=== PATIENT | female | born 2000 | race Caucasian/White ===

== ENCOUNTER 2024-01-26 10:48 | Outpatient (CLI) | payer OTHER, SELFPAY ==
--- NOTE | ~2024-01-26 | MR_ITS ---
EXAMINATION: MR hip RT wo con DATE: 01/26/2024 11:46 INDICATION: Right hip fracture. TECHNIQUE: Magnetic resonance imaging (MRI) of the right hip was performed without intravenous contr ast. Sequences included full-field axial PD-weighted FS FSE and T1-weighted FSE, coronal of the pelvi s with PD-weighted FS FSE, T2-weighted FSE and T1-weighted FSE, small field of view of the right hip with axial PD-weighted FS FSE, sagittal PD-weighted FS FSE, coronal PD-weighted FS FSE and coronal T 2 weighted FSE. Additional radial T1-weighted FGR oriented orthogonal to the acetabular rim were obta ined for evaluation of the labrum. COMPARISON: None FINDINGS: Bones/labrum/cartilage: Mild lumbar levocurvature. Bone alignment is otherwise normal. Focal marrow edema at the medial basic ervical proximal right femur without evident linear low signal intensity fracture line consistent wit h a low-grade stress injury. Prominent low signal intensity bone islands at the intratrochanteric pro ximal left femur. Bone marrow signal is otherwise normal throughout. No pathologic marrow replacing p rocess. Small cleft with smooth margins at the base of the anterosuperior right acetabular labrum whi ch could represent either a normal sulcus or small labral tear. Articular cartilage is normal. Fluid: Symmetric physiologic amount of fluid within both hip joints. Small amount of likely physiologic free fluid in the deep pelvis. Soft tissues: There is likely reactive mild soft tissue edema in the vicinity of the proximal right femoral stress injury. Normal and symmetric muscle bulk and signal in the pelvis and visualized proximal thighs. The iliopsoas, gluteal and proximal hamstring tendons are normal. There are multiple small T2 hyperinten se cysts/follicles at both ovaries. Limited evaluation of visceral organs of the pelvis is unremarkab le. No pathologically enlarged pelvic/inguinal lymphadenopathy. IMPRESSION: 1. Low-grade stress injury along the medial basicervical proximal right femur without evident fractur e line or cortical involvement. 2. Small tear versus more likely normal sublabral sulcus at the anterosuperior right acetabular labru m. Reviewed, dictated and finalized at location A. IMPRESSION: 1. Low-grade stress injury along the medial basicervical proximal right femur w ithout evident fracture line or cortical involvement. 2. Small tear versus more likely normal sublabral sulcus at the anterosuperior right acetabular labrum.
== END 2024-01-26 10:49 | disposition home or self-care (01) ==
LOC: ANHIMG 10:54
PROVIDERS: PCP Orthopaedic Surgery; Visit Provider Orthopaedic Surgery
DX: M25.551 Pain in right hip (principal)
CPT/HCPCS: 73721